=== PATIENT | female | born 1970 | race Two or more races ===

== ENCOUNTER 2024-06-21 14:36 | Emergency (ER) | payer MEDICAID, SELFPAY ==
[2024-06-21 14:45] VITALS: BP 140/75; PULSE 85; RESP 16; TEMP 37.1; O2SAT 97; BMI 24.2
[2024-06-21] MEDS: TETRACAINE PF OP SOL 0.5% 4 ML DRPETTE 1 DROP LEFT EYE (15:27)
[2024-06-21] MEDS: FLUORESCEIN SOD 1 MG STRP LEFT EYE (15:28)
--- NOTE | 2024-06-21 15:48 | EDNOTE_ITS ---
ED Eye Problem RME/HPI General Chief complaint: Eye Problems Stated complaint: left eye redness, itchy,x2 days Time Seen by Provider: 06/21/24 14:50 Arrival date/time: 06/21/24 14:36 54-year-old female presents to the emergency department today stating that she noticed redness to her left eye patient ports no headache no dizziness no weakness no difficulty with vision patient does report that she has had URI symptoms Limitations: no limitations Related Data Previous Rx's ?Medication ?Instructions ?Recorded ibuprofen 600 mg tablet 600 mg PO Q8H PRN fever or pain 08/24/19 #30 tabs ibuprofen 800 mg tablet 800 mg PO TID PRN fever or pain 08/18/20 #30 tabs fluconazole 200 mg tablet 200 mg PO BID #10 tabs 08/22/20 (Diflucan) ondansetron HCl 4 mg tablet 4 mg PO Q8H PRN nausea and 03/22/21 (Zofran) vomiting #20 tabs pantoprazole 40 mg tablet,delayed 40 mg PO QDAY #30 tabs 03/22/21 release (Protonix) acetaminophen 500 mg tablet 500 mg PO Q6H PRN pain #60 tabs 10/17/23 (Tylenol Extra Strength) ibuprofen 600 mg tablet 600 mg PO Q6H PRN pain #30 tabs 10/17/23 methocarbamol 500 mg tablet 1,000 mg (2 x 500 mg) PO Q6H #30 10/17/23 tabs Allergies Allergy/AdvReac Type Severity Reaction Status Date / Time No Known Allergies Allergy Verified 06/21/24 14:38 Review of Systems Review of Systems Systems Reviewed: All systems reviewed, normal except as documented Constitutional Constitutional: Reports system reviewed and no additional complaints, except as documented, Denies fever(s) and Denies headache(s) Eyes Eyes: Reports system reviewed and no additional complaints, except as documented, Denies blurry vision and Reports other (Subconjunctival hemorrhage left eye) ENT Ears, Nose, Mouth, and Throat: Reports system reviewed and no additional complaints, except as documented, Denies headache(s), Denies nasal congestion and Denies nasal discharge Cardiovascular Cardiovascular: Reports system reviewed and no additional complaints, except as documented, Denies chest pain and Denies dyspnea Respiratory Respiratory: Reports system reviewed and no additional complaints, except as documented, Denies chest congestion, Denies cough and Denies dyspnea Gastrointestinal Gastrointestinal: Reports system reviewed and no additional complaints, except as documented and Denies abdominal pain Integumentary/Breasts Skin/Breast: Reports system reviewed and no additional complaints, except as documented and Denies rash Neurologic Neurologic: Reports system reviewed and no additional complaints, except as documented, Reports as per HPI and Denies headache(s) Past Medical History Past Medical History CARDIAC: Negative Cardiac Disorders or Congestive Heart Failure RESPIRATORY: Negative Chronic Obstructive Pulmonary Disease (COPD) or Asthma (valley fever) GENITOURINARY: Negative Renal Disease ENDOCRINE: Positive Endocrine Disorders and Diabetes Mellitus Type 2; Negative Diabetes Mellitus Type 1 HEMATOLOGIC: Negative Sickle Cell Disease PSYCHO/SOCIAL: Positive Anxiety Surgical History SURGICAL: Positive Section Social History SMOKING STATUS: Never smoker SUBSTANCE USE: does not use ED Exam General Limitations: Present no limitations General appearance: Present alert and in no apparent distress Head Head exam: Present atraumatic Eye Eye exam: Present PERRL, EOMI and conjunctival injection (Subconjunctival hemorrhage left eye); Absent periorbital tenderness ENT ENT exam: Present normal exam, normal oropharynx and mucous membranes moist Neck Neck exam: Present normal inspection, full ROM and trachea midline Chest Chest inspection: Present normal inspection and symmetric chest wall rise Respiratory Respiratory exam: Present normal lung sounds bilaterally Cardiovascular Cardiovascular exam: Present regular rate, normal rhythm and normal heart sounds Abdominal Exam Abdominal exam: Present soft and normal bowel sounds Extremities Exam Extremities exam: Present normal inspection and full ROM Back Exam Back exam: Present normal inspection and full ROM Neurological Exam Neurological exam: Present alert, oriented X3 and CN II-XII intact Psychiatric Psychiatric exam: Present normal affect and normal mood Skin Skin exam: Present warm, dry, intact and normal color Course Quality Measures none Orders Category Date Time Status ED Eye Irrigation ONCE Care 06/21/24 14:59 Active Harris Lamp to Bedside X1 Care 06/21/24 14:59 Completed Fluorescein Sodium [[id number]] Med 06/21/24 14:59 Discontinued 1 mg LEFT EYE X1 ONE TETRACAINE Op Ana Paula 0.5% [Pontocaine Op Ana Paula 0.5%] Med 06/21/24 14:59 Disco ntinued 1 drop LEFT EYE X1 ONE Vital Signs Vital signs: Vital Signs Temperature 98.8 F 06/21/24 14:45 Pulse Rate 85 06/21/24 14:45 Respiratory Rate 16 06/21/24 14:45 Blood Pressure 140/75 H 06/21/24 14:45 Pulse Oximetry (%) 97 06/21/24 14:45 Oxygen Delivery Method Room Air 06/21/24 14:45 O2 saturation 97% room air within normal limits Eye MDM Narrative MDM Narrative:: 54-year-old female presents to the emergency department today stating that she noticed redness to her left eye patient ports no headache no dizziness no weakness no difficulty with vision patient does report that she has had URI symptoms On exam patient well-appearing patient does not appear ill or toxic patient reports no difficulty with vision On exam patient has no evidence of glaucoma Pupils are normal no hyphema On exam patient does have subconjunctival hemorrhage was lamp exam performed no abnormality noted Patient discharged home in no distress to follow-up with primary care doctor in the next 24 to 48 hours and for any worsening symptoms to return to the ER immediately Patient data External records reviewed:: [facility] previous records Clinical information provided by:: patient Social determinants that could affect healthcare access:: none Patient has the following chronic illnesses:: None How is presenting disease/condition affected by chronic disease/condition?: uneffected by Evaluation data The following diagnostics were reviewed and interpreted by me:: other (specify) (N/A) Lab and/or radiology exams considered but not ordered:: Consider not ordered Interpretation Summary: N/A Medications / Prescriptions Medications or Prescriptions considered but not ordered:: Given Medication administrations:: Medication Administration History Discontinued Medications Fluorescein Sodium (Fluorescein Sod 1 Mg Strp) 1 mg LEFT EYE X1 ONE Stop: 06/21/24 15:00 Last Admin: 06/21/24 15:28 Dose: 1 mg Documented By: MICHELLE Comments: given to uma loco for administration Tetracaine HCl (Tetracaine Pf Op Ana Paula 0.5% 4 Ml Drpette) 1 drop LEFT EYE X1 ONE Stop: 06/21/24 15:00 Last Admin: 06/21/24 15:27 Dose: 1 drop Documented By: MICHELLE Comments: given to uma loco for administration Given Consultations Consultation(s) initiated? (list below): No Diagnosis Eye Problem Differential Diagnosis: corneal abrasion, subconjunctival hemorrhage, glaucoma and corneal ulcer Most likely diagnosis given after review of the tests above:: Subconjunctival hemorrhage Admission Indicated Admission indicated?: not indicated Admission Request Was there a request for admission?: No Disposition Plan Disposition Plan: Discharge Discharge Attestation Discharge Attestation: The patient and all family members were given an opportunity to ask questions and understood the discharge instructions. Discharge instructions specifically effects, indications for sooner follow up or return to the emergency department, and the expected course of current diagnosis. Patient condition: Stable Discharge Plan Plan Patient Disposition: HOME (Self Care) Disposition Comment: Stable Prescriptions/Referrals Prescriptions/Med Rec: No Action fluconazole [Diflucan] 200 mg tablet 200 mg PO BID Qty: 10 0RF pantoprazole [Protonix] 40 mg tablet,delayed release (DR/EC) 40 mg PO QDAY Qty: 30 0RF ondansetron HCl [Zofran] 4 mg tablet 4 mg PO Q8H PRN (Reason: nausea and vomiting) Qty: 20 0RF ibuprofen 600 mg tablet 600 mg PO Q8H PRN (Reason: fever or pain) Qty: 30 0RF ibuprofen 800 mg tablet 800 mg PO TID PRN (Reason: fever or pain) Qty: 30 0RF Rx Instructions: INSTRUCTION IN [place] PLEASE ibuprofen 600 mg tablet 600 mg PO Q6H PRN (Reason: pain) Qty: 30 0RF methocarbamol 500 mg tablet 1,000 mg PO Q6H Qty: 30 0RF acetaminophen [Tylenol Extra Strength] 500 mg tablet 500 mg PO Q6H PRN (Reason: pain) Qty: 60 0RF Problem List Clinical Impression: Subconjunctival hemorrhage Patient/Caregiver Discharge Instructions Education Materials: Subconjunctival Hemorrhage Additional Instructions: Please follow up with your primary care doctor in the next 24-48hrs for any worsening symptoms return here immediately Print Language: Paraguayan Stand Alone Forms: Za Award Info., Patient Portal Info Letter PA/FAMILY INTERVENTION SPECIALIST Supervising Physician PA/FAMILY INTERVENTION SPECIALIST Supervising Physician: Dr [email or web address]
== END 2024-06-21 15:57 | disposition home or self-care (01) ==
LOC: SERX 16:03
PROVIDERS: Emergency Provider Emergency Medicine; PCP Family Medicine
DX: H11.32 Conjunctival hemorrhage, left eye (principal)
CPT/HCPCS: 99283